=== PATIENT | male | born 1955 | race Caucasian/White ===

== ENCOUNTER 2023-10-22 11:26 | Outpatient (CLI) | payer MEDICARE, SELFPAY ==
[2023-10-22 11:49] LABS: Hematocrit 48.9 % (42.0-52.0); Hemoglobin 16.2 g/dL (14.0-18.0); Mean Corpuscular HGB Conc 33.1 g/dl (32-36); Mean Corpuscular Hemoglobin 31.2 pg (26-34); Mean Corpuscular Volume 94.2 fl (80-100); Platelet Count Result 210 k/mm3 (150-375); Red Blood Count 5.19 M/mm3 (4.6-6.20); Red Cell Distribution Width 14.3 % (11.5-14.5); White Blood Count 7.1 K/mm3 (4.5-10.0)
[2023-10-22 12:06] LABS: Alanine Aminotransferase 34 U/L (6-50); Albumin Level 4.3 g/dL (3.5-5.1); Alkaline Phosphatase 82 U/L (38-126); Anion Gap 10 mmol/L (4-12); Aspartate Amino Transferase 35 U/L (17-59); Bilirubin,Total 0.8 mg/dL (0.2-1.3); Blood Urea Nitrogen 17 mg/dL (9-20); Calcium 8.9 mg/dL (8.4-10.2); Carbon Dioxide 28 mmol/L (22-30); Chloride 100 mmol/L (98-107); Estimated Glomerular Filt Rate > 60; Glucose 96 mg/dL (65-110); Potassium 4.6 mmol/L (3.4-5.0); Sodium 138 mmol/L (137-145)
[2023-10-22 12:36] LABS: Prostate Specific Antigen 1.7 ng/mL (< OR = 4.0)
[2023-10-25 21:04] LABS: Testosterone Total 491 ng/dL (250-1100)
== END 2023-10-22 11:27 | disposition home or self-care (01) ==
LOC: ANHLAB 11:28
PROVIDERS: PCP Family Medicine; Visit Provider Family Medicine
DX: Z12.5 Encounter for screening for malignant neoplasm of prostate (principal); M19.90 Unspecified osteoarthritis, unspecified site; I48.91 Unspecified atrial fibrillation
CPT/HCPCS: 36415; 80053; 84153; 84403; 85027; G0103

== ENCOUNTER 2024-10-29 09:40 | Outpatient (CLI) | payer MEDICARE, SELFPAY ==
--- OUTSIDE RECORDS SUMMARY | 2024-10-29 09:48 | XMS_ITS | Clinical Summary ---
Author Organization [facility] Address [address] [place] [address] Care Team Providers Care Production Supervisor Name Role Phone Diann Willoughby MD Primary Care Provider + Jose Bowden MD Unavailable [phone] Allergies Active Allergy Reactions Criticality Noted Date Comments Erythromycin Rash,Hives,Other (See comments) Medium Medications buPROPion XL (WELLBUTRIN XL) 300 mg 24 hr tabletIndicati ons:anxiety Take 1 tablet (300 mg total) by mouth every morning Active testosterone cypionate (DEPO-TESTOTER ONE) 200 mg/mL injection Inject into the muscle as instructed every 14 (fourteen) days 6 Active celecoxib (CeleBREX) 200 mg capsuleIndicat ions:Osteoarth ritis,Postoper ative Acute Pain 200mg everyday as needed. 30 capsule 1 Active Additional Information Patient taking differently: 200 mg oral Daily, 200mg everyday as needed., Indications: Osteoarthritis, Postoperative Acute Pain, Reported on 06/01/2024 multivitamin with minerals tablet Take 1 tablet by mouth daily Active Eliquis 5 mg tablet TAKE 1 TABLET BY MOUTH TWICE DAILY 200 tablet 3 5 Active bisoprolol (ZEBETA) 10 mg tablet TAKE 1 TABLET BY MOUTH DAILY 100 tablet 2 5 Active Active Problems Problem Noted Date Diagnosed Date Chronic anticoagulation 01/09/2023 Nonrheumatic mitral valve regurgitation 01/10/20 23 GWENDOLYN on CPAP 05/17/2020 Class 2 obesity in adult 05/17/2020 Paroxysmal atrial fibrillation 05/17/2020 Primary osteoarthritis of right knee 04/24/2020 Overview (04/24/2020): Added automatically from request for surgery [id number] Immunizations Immunization Administration Dates Next Due Influenza, Quadrivalent, Spl it, Preservative Free, Intramuscular 11/30/2019,12/08/2018 Moderna SARS-CoV-2 Monovalent Vaccination (12+ Y RS) 04/12/2020 ZOSTER Recombinant 03/17/2018,12/15/2017 Surgical History Surgery Date Site/Laterality Comments KNEE ARTHROSCOPY 1974 ELBOW DEBRIDEMENT 03/03/2002 - 03/02/2003 ARM DEBRIDEMENT 03/03/1973 - 03/02/1974 REPLACEMENT TOTAL KNEE Right 2020 JOINT REPLACEMENT 05/21 Medical History Medical History Date Comments Atrial fibrillation (HCC) Kidney stone Covid-19 01/30/2020 no hospitalizati on Chronic sinusitis Osteoarthritis Sleep apnea Family History Medical History Relation Name Comments Arthritis Father Bubba Scherer Cancer Father Bubba Scherer Coronary artery disease Father Bubba Scherer Diabetes Father Bubba Scherer Heart attack Father Bubba Scherer Heart disease Father Bubba Scherer Stroke Father Bubba Scherer Arthritis Mother Gus Scherer Cancer Mother Gus Scherer Non-Hodgkin's Lymphoma Mother Gus Scherer No Known Problems Sister 1 No Known Problems Sister 2 Relation Name Status Comments Father Bubba Scherer Mother Gus Scherer Sister 1 Alive Sister 2 Alive Social History Tobacco Use Types Packs/Day Years Used Date Smoking Tobacco: Never Smokeless Tobacco: Never Tobacco Cessation:Counseling Given: Not Answered AUDIT-C Answer Date Recorded Q1: How often do you have a drink containing alc ohol? 2-4 times a month 09/08/2023 Q2: How many drinks containi ng alcohol do you have on a typical day when you are drinking? 3 or 4 09/08/2023 Q3: How often do you have si x or more drinks on one occasion? Never 09/08/2023 Personal Safety Answer Date Recorded Have you ever been in or are you currently in a harmful physical or emotional relationship or is someone making you feel afraid or unsafe? Denies 09/08/2023 Sex and Gender Information Value Date Recorded Sex Assigned at Not on file Legal Sex Male 2:53 PM [employer] Gender Identity Not on file Sexual Orientation Not on file Obstetrics History Last Filed Vital Signs Vital Sign Reading Time Taken Comments Blood Pressure 110/64 06/01/2024 2:31 PM CDT Pulse 50 06/01/2024 2:31 PM CDT Temperature 36.1 C (97 F) 09/08/2023 9:25 AM CDT Respiratory Rate 18 09/08/2023 9:55 AM CDT Oxygen Saturation 95% 06/01/2024 2:31 PM CDT Inhaled Oxygen Concentration - - Weight 112 kg (247 lb) 06/01/2024 2:31 PM CDT Height 177.8 cm (5' 10) 06/01/2024 2:31 PM CDT Body Mass Index 35.44 06/01/2024 2:31 PM CDT Plan of Treatment Health Maintenance Due Date Last Done Comments Colon Cancer Screening-Colonoscopy 1955 Depression Screening 1955 Hepatitis C Screening 1956 Prostate Cancer Screening-PSA 1956 Hepatitis B Screening 1974 Well Visit 65+ 2021 Pneumococcal vaccine 65+ (2 of 2 - PCV) 03/27/2023 03/27/2022 Covid-19 Vaccine (2 - 2023-2 5 season) 2023 04/12/2020 Fall Risk Assessment 09/07/2024 09/08/2023, 01/10/20 23 Influenza Vaccine (#1) 2024 , 11/30/2019, 12/08/2018, Additional history exists DTaP/Tdap/Td Vaccine (2 - Td or Tdap) 10/15/2032 10/15/2022 Zoster Vaccine Completed 03/17/2018, 12/15/2017 Medical Devices Implanted Type Area Road Tester Device Identifier Shelf Expiration Date Model / Serial / Lot [employer] [id number] Attune 14mm Cruciate Retaining Rotate Platform Knee 8 Insert - [id number] Implanted:Qty: 1 on 05/19/2020 by Yeison Ruvalcaba MD at [facility] Right: Knee [employer] [id number] 06/30/2024 [id number] / / [id number] [employer] [id number] Attune Cruciate Retain Cementless Knee Right 8 Component Femoral - [id number] Implanted:Qty: 1 on 05/19/2020 by Yeison Ruvalcaba MD at [facility] Right: Knee [employer] [id number] 06/30/2029 [id number] / / [id number] [employer] [id number] Attune Cementless Rotate Platform Knee 10 Baseplate Tibial - [id number] Implanted:Qty: 1 on 05/19/2020 by Yeison Ruvalcaba MD at [facility] Right: Knee [employer] [id number] 12/31/2029 [id number] / / [id number] Insurance UHC MEDICARE ADVANTAGE Member Subscriber Plan / Payer (Ef fective 2021-Present) Name:Grady Scherer Relation to Subscriber:Self Name:Grady Scherer Payer ID:[id number] (NAIC) Type:[facility] MED[facility] Address: [place] [phone] Care Teams Production Supervisor Relationship Specialty Start Date End Date Diann Willoughby MD [address] [place] [address] [address] [place] [address] PCP - General Family Medicine 01/17/20 Jose Bowden MD [address] [address] Consulting Physician General Surgery 09/08/23
[2024-10-29 10:26] LABS: Hematocrit 46.1 % (42.0-52.0); Hemoglobin 15.4 g/dL (14.0-18.0); Mean Corpuscular HGB Conc 33.4 g/dl (32-36); Mean Corpuscular Hemoglobin 31.4 pg (26-34); Mean Corpuscular Volume 94.1 fl (80-100); Platelet Count Result 214 k/mm3 (150-375); Red Blood Count 4.90 M/mm3 (4.6-6.20); White Blood Count 6.0 K/mm3 (4.5-10.0)
[2024-10-29 11:02] LABS: Hemoglobin A1C 5.6 % (<5.7)
[2024-10-29 11:11] LABS: Alanine Aminotransferase 24 U/L (6-50); Albumin Level 4.5 g/dL (3.5-5.1); Alkaline Phosphatase 102 U/L (38-126); Anion Gap 10 mmol/L (4-12); Aspartate Amino Transferase 31 U/L (17-59); Bilirubin,Total 0.9 mg/dL (0.2-1.3); Blood Urea Nitrogen 25 mg/dL (9-20); Calcium 9.1 mg/dL (8.4-10.2); Carbon Dioxide 21 mmol/L (22-30); Chloride 107 mmol/L (98-107); Cholesterol 202 mg/dL (0-200); Estimated Glomerular Filt Rate > 60; Glucose 97 mg/dL (65-110); HDL Direct 50 mg/dL; Potassium 4.1 mmol/L (3.4-5.0); Sodium 138 mmol/L (137-145); Total Protein 7.6 g/dL (6.3-8.2); Triglycerides 109 mg/dL (<150)
[2024-10-29 11:46] LABS: Prostate Specific Antigen 1.3 ng/mL (< OR = 4.0)
[2024-10-30 08:08] LABS: C-Reactive Protein, Cardiac 5.38 mg/L (0.00-3.00)
== END 2024-10-29 09:41 | disposition home or self-care (01) ==
LOC: ANHLAB 09:46
PROVIDERS: PCP Family Medicine; Visit Provider Family Medicine
DX: M19.049 Primary osteoarthritis, unspecified hand (principal); Z79.899 Other long term (current) drug therapy; I48.91 Unspecified atrial fibrillation; Z12.5 Encounter for screening for malignant neoplasm of prostate
CPT/HCPCS: 36415; 80053; 80061; 82172; 83036; 84153; 85027; 86141; G0103